=== PATIENT | male | born 1960 | race Caucasian/White ===

== ENCOUNTER 2020-07-20 06:52 | Inpatient (IN) ==
[2020-07-20] MEDS ORDERED: Lidocaine HCL 4 ML Topical Solution (Laryng-O-Jet Kit Sterile Pak) TP ONE (07:10)
[2020-07-20] MEDS ORDERED: *HR* Midazolam HCl 2 MG/2 ML VIAL ONE (07:10)
[2020-07-20] MEDS ORDERED: Dexamethasone 4 MG/ML VIAL ONE (07:10)
[2020-07-20] MEDS ORDERED: Lidocaine -MPF 2% 2 ML VIAL ONE (07:10)
[2020-07-20] MEDS ORDERED: *HR* Propofol 200 MG/20 ML VIAL IVP ONE (07:10)
[2020-07-20] MEDS ORDERED: *HR* Rocuronium Bromide 50 MG/5 ML VIAL ONE (07:10)
[2020-07-20] MEDS ORDERED: *HR* FentaNYL (PF) 100 MCG/2 ML VIAL ONE (07:10)
[2020-07-20] MEDS ORDERED: Ondansetron 4 MG/2 ML VIAL ONE (07:10)
[2020-07-20] MEDS ORDERED: *HR* Succinylcholine 200 MG/10 ML VIAL IVP ONE (07:10)
[2020-07-20] MEDS ORDERED: CeFAZolin Syr 2,000MG/20 ML 2,000 MG/20 ML SYRINGE IVPB ONE (07:39)
[2020-07-20] MEDS ORDERED: Ringers Solution, Lactated 1,000 ML IVC SCH (07:45)
[2020-07-20] MEDS ORDERED: *HR* HYDROmorphone (PF) 1 MG/ML SYRINGE IVP PRN (08:15)
[2020-07-20] MEDS ORDERED: Bacitracin 50,000 UNIT, Polymyxin B Sulfate 500,000 UNIT, Sodium Chloride IRRigation 1,... IR ONE (08:15)
[2020-07-20] MEDS ORDERED: *HR* Labetalol 20 MG/4 ML SYRINGE IVP PRN (08:15)
[2020-07-20] MEDS ORDERED: *HR* HYDROmorphone 2 MG TABLET PO PRN (08:15)
[2020-07-20] MEDS ORDERED: Famotidine 20 MG/2 ML VIAL IVP ONE (08:15)
[2020-07-20] MEDS ORDERED: Pregabalin 75 MG CAPSULE PO ONE (08:15)
[2020-07-20] MEDS ORDERED: Promethazine 6.25 MG in Water for inj. (sterile) 20 ML IVPB PRN (08:15)
[2020-07-20] MEDS ORDERED: *HR* OxyCODONE Immed Rel 5 MG TABLET PO PRN ×2 (08:15→12:20)
[2020-07-20] MEDS ORDERED: Acetaminophen IV 1,000 MG/100 ML INFUS..BTL IVPB ONE (08:15)
[2020-07-20] MEDS ORDERED: EPHEDrine 50 MG/ML VIAL ONE (08:40)
[2020-07-20] MEDS ORDERED: Chloraseptic Spray 177 ML BOTTLE PO PRN (12:20)
[2020-07-20] MEDS ORDERED: *HR* HYDROcodone/Acet 5/325 mg TABLET PO PRN (12:20)
[2020-07-20] MEDS ORDERED: Mag Hydrox/Al Hydrox/Simeth 30 ML UDC PO PRN (12:20)
[2020-07-20] MEDS ORDERED: Acetaminophen 325 MG TABLET PO PRN (12:20)
[2020-07-20] MEDS ORDERED: Naloxone 0.4 MG/ML INJ IVP PRN (12:20)
[2020-07-20] MEDS ORDERED: Bismuth Subsalicylate 120 ML ORAL SUSPENSION PO PRN (12:20)
[2020-07-20] MEDS ORDERED: Ondansetron 4 MG/2 ML VIAL IVP PRN (12:20)
[2020-07-20] MEDS ORDERED: Saline Nasal Spray 44 ML BOTTLE NS PRN (12:20)
[2020-07-20] MEDS: Ringers Solution, Lactated 1,000 ML IVC SCH (13:05)
[2020-07-20] MEDS: rOPINIRole 0.25 MG TABLET PO SCH ×2 (16:58→21:42)
[2020-07-20] MEDS: CeFAZolin 2 GM/120 ML BAG IVPB SCH ×2 (16:58→23:07)
[2020-07-20] MEDS ORDERED: Primidone 50 MG TABLET PO SCH (21:00)
[2020-07-20] MEDS: carBAMazepine 200 MG TABLET PO SCH (21:42)
[2020-07-20] MEDS: ILOPERIDONE 4 MG PO SCH (23:28)
[2020-07-21] MEDS: Ringers Solution, Lactated 1,000 ML IVC SCH (00:34)
[2020-07-21] MEDS ORDERED: Multivit/Ca/Min/Fe/FA 1 TAB TABLET PO SCH (09:00)
[2020-07-21] MEDS ORDERED: MOM Conc 10 ML UD.LIQ PO SCH (09:00)
[2020-07-21] MEDS ORDERED: Finasteride 5 MG TABLET PO SCH (09:00)
[2020-07-21] MEDS ORDERED: Propranolol LA (24 HR) 60 MG CAP.SA.24H PO SCH (09:00)
[2020-07-21] MEDS: carBAMazepine 200 MG TABLET PO SCH (09:54)
[2020-07-21] MEDS: rOPINIRole 0.25 MG TABLET PO SCH ×2 (09:55→15:45)
[2020-07-21] MEDS: ILOPERIDONE 4 MG PO SCH (09:56)
[2020-07-21 11:22] VITALS: BP 141/79
== END 2020-07-21 17:22 | disposition other institution (70) | DRG 472 ==
LOC: SAMDAY 06:52 → 3NENU 12:11
PROVIDERS: ADMIT Orthopaedic Surgery Orthopaedic Surgery of the Spine; ATTEND Orthopaedic Surgery Orthopaedic Surgery of the Spine

== ENCOUNTER 2021-06-14 10:45 | Observation (INO) ==
[2021-06-14] MEDS ORDERED: 0.9 % Sodium Chloride 1,000 ML IVC ONE (11:01)
[2021-06-14] MEDS ORDERED: Isovue-370 500 ML BOTTLE IVP ONE (11:01)
[2021-06-14 11:16] LABS: Hematocrit 37.2 % (37.5-50.1); Hemoglobin 12.6 g/dL (12.9-16.9); Mean Corpuscular HGB Conc 33.9 g/dL (31.6-35.5); Mean Corpuscular Hemoglobin 32.3 pg (28.0-33.3); Mean Corpuscular Volume 95.4 fL (83.0-100.0); Platelet Count 117 K/mcL (140-400); Red Cell Distribution Width 12.5 % (11.5-14.5); White Blood Count 7.5 K/mcL (4.3-11.1)
[2021-06-14 11:23] LABS: INR 1.1; Prothrombin Time 12.6 Seconds (9.4-12.1)
[2021-06-14 11:26] LABS: Activated Partial Thrombo Time 32.5 Seconds (26.0-36.0)
[2021-06-14 12:29] LABS: Bilirubin,Urine Negative (Negative); Blood,Urine Negative (Negative); Clarity,Urine Clear (Clear); Color,Urine Light-Yellow (Yellow); Glucose,Urine (UA) Normal (Normal); Ketones,Urine Negative (Negative); Leukocyte Esterase,Urine Negative (Negative); Nitrite,Urine Negative (Negative); Protein,Urine Negative (Neg-Trace); Specific Gravity,Urine > 1.030 (1.010-1.025); Urobilinogen,Urine Normal (Normal)
[2021-06-14 12:48] LABS: Amphetamine Screen,Urine Negative ng/mL (Cutoff=1000); Barbiturate Screen,Urine Positive ng/mL (Cutoff=200); Benzodiazepines Screen,Urine Negative ng/mL (Cutoff=200); Cannabinoid Screen,Urine Negative ng/mL (Cutoff = 50); Cocaine Screen,Urine Negative ng/mL (Cutoff= 300); Opiate Screen,Urine Negative ng/mL (Cutoff=300); Phencyclidine Screen,Urine Negative ng/mL (Cutoff=25)
[2021-06-14 12:52] LABS: BUN/Creatinine Ratio 17 (6-26); Blood Urea Nitrogen 18 mg/dL (8-23); Calcium 9.7 mg/dL (8.6-10.3); Carbon Dioxide 28 mEq/L (23-29); Chloride 106 mEq/L (98-107); Ethanol < 10 mg/dL (Less than 10); Glucose 79 mg/dL (70-105); Osmolality,Calculated 289 (280-300); Potassium 4.3 mEq/L (3.5-5.1); Sodium 139 mEq/L (136-145); Troponin I < 0.03 ng/mL (< 0.04); eGFR For African Americans > 60 (> 60); eGFR For Non-African Americans > 60 (> 60)
[2021-06-14 13:23] LABS: Influenza A PCR Negative (Negative); Influenza B PCR Negative (Negative); Resp. Syncytial Virus PCR Negative (Negative)
[2021-06-14] MEDS ORDERED: Naloxone 0.4 MG/ML INJ IVP PRN (13:26)
[2021-06-14 13:28] LABS: SARS-CoV-2 by PCR (In House) Negative (Negative)
[2021-06-14] MEDS ORDERED: Perflutren Lipid Microsphere 1.3 ML in 0.9 % Sodium Chloride 8.7 ML IVP PRN (13:28)
[2021-06-14 14:05] LABS: Chol/HDL Ratio 2.7 (0-4.9); Cholesterol 143 mg/dL (< 200); HDL Cholesterol 53 mg/dL (40-59); LDL Cholesterol,Calculated 73 mg/dL (< 100); Triglycerides 85 mg/dL (< 150)
[2021-06-14] MEDS ORDERED: Aspirin 81 MG TAB.CHEW PO STA (14:17)
[2021-06-14 16:01] LABS: Estimated Average Glucose 108 mg/dl; Hemoglobin A1C 5.4 %
[2021-06-14] MEDS ORDERED: QUEtiapine Fumarate 25 MG TABLET PO PRN (18:58)
[2021-06-14] MEDS: *HR* Heparin 5,000 UNIT/ML VIAL SQ SCH (22:18)
[2021-06-15 03:57] VITALS: O2SAT 94
[2021-06-15] MEDS: *HR* Heparin 5,000 UNIT/ML VIAL SQ SCH (06:06)
[2021-06-15] MEDS ORDERED: Aspirin Enteric Coated 81 MG Tablet PO SCH (09:00)
[2021-06-15] MEDS ORDERED: ILOPERIDONE 4 MG PO SCH (09:15)
[2021-06-15] MEDS ORDERED: Finasteride 5 MG TABLET PO SCH (09:15)
[2021-06-15] MEDS ORDERED: rOPINIRole 0.25 MG TABLET PO SCH (09:15)
[2021-06-15] MEDS ORDERED: BUSPAR PO SCH (09:15)
[2021-06-15] MEDS ORDERED: carBAMazepine 200 MG TABLET PO SCH (09:15)
[2021-06-15 11:28] VITALS: BP 129/63; PULSE 67; TEMP 98.6
[2021-06-15] MEDS ORDERED: Primidone 50 MG TABLET PO SCH (21:00)
[2021-06-16] MEDS ORDERED: Propranolol LA (24 HR) 60 MG CAP.SA.24H PO SCH (09:00)
== END 2021-06-15 13:17 | disposition home health service (06) ==
LOC: 3BNU 10:45 → EMEROOARM 10:45 → SUATTDRO 13:42 → 3BNU 14:54
PROVIDERS: ADMIT Internal Medicine; ATTEND Internal Medicine